=== PATIENT | male | born 1960 | race Hispanic/Latino ===

== ENCOUNTER 2024-07-13 04:05 | Observation (INO) | payer MEDICARE ==
[2024-07-13] VITALS (8 sets, daily range): BP systolic 120–159; BP diastolic 67–90; PULSE 73–89; RESP 16–22; TEMP 98.2–99.3; O2SAT 94–99
[~2024-07-13] VITALS: Ht 167.6 cm; Wt 97.5 kg
[2024-07-13] MEDS: FAMOTIDINE 20 MG/2 ML VIAL IV STA (04:21)
[2024-07-13] MEDS: ONDANSETRON HCL INJ 2MG/ML 2ML 2 MG/ML VIAL IV STA (04:40)
[2024-07-13] MEDS: Morphine 4mg INJECTION 4 MG/ML INJ IV ONE (04:41)
[2024-07-13 04:44] LABS: BASOPHILS % 0.3 % (0.0-1.0); EOSINOPHILS # (AUTO) 0.1 (0.0-0.4); EOSINOPHILS % 0.4 % (0.0-6.0); HEMATOCRIT 51.8 % (38.2-49.6); HEMOGLOBIN 17.5 g/dL (14.0-18.0); LYMPHOCYTES # (AUTO) 1.1 (1.0-3.2); LYMPHOCYTES % 8.4 % (18.0-39.1); MEAN CORPUSCULAR HEMOGLOBIN 32.2 pg (28-32); MEAN CORPUSCULAR HGB CONC 33.8 g/dL (31-35); MEAN CORPUSCULAR VOLUME 95.4 fL (81-99); MONOCYTES # (AUTO) 0.5 (0.2-0.8); MONOCYTES % 3.3 % (4.4-11.3); NEUTROPHILS # (AUTO) 11.8 (2.1-6.9); NEUTROPHILS % 87.2 % (38.7-80.0); PLATELET COUNT 206 x10e3/uL (140-360); RED BLOOD COUNT 5.43 x10e6/uL (4.3-5.7); RED CELL DISTRIBUTION WIDTH 12.4 % (11.7-14.4); WHITE BLOOD COUNT 13.52 x10e3/uL (4.8-10.8)
[2024-07-13 04:59] LABS: ALBUMIN/GLOBULIN RATIO 1.6 (0.8-2.0); ANION GAP 16.7 mmol/L (8-16); BILIRUBIN,TOTAL 0.6 mg/dL (0.2-1.2); CALCIUM 10.7 mg/dL (8.4-10.2); CREATININE, SERUM 0.96 mg/dL (0.72-1.25); POTASSIUM 3.7 mmol/L (3.5-5.1); TOTAL PROTEIN 8.1 g/dL (6.5-8.1)
[2024-07-13 05:05] LABS: TROPONIN I 0.015 ng/mL (0-0.300)
[2024-07-13] MEDS ORDERED: LIDOCAINE VISC 2% SOLN 15 ML UDC ONE (05:18)
[2024-07-13] MEDS ORDERED: BELLADONNA ALK/PHENOBARBITAL 5 ML UDC ONE (05:18)
[2024-07-13] MEDS ORDERED: MAGNESIUM/ALUMINUM/SIMETHICONE 30 ML UDC ONE (05:19)
[2024-07-13] MEDS: DONNATAL/LIDOCAINE/MAALOX 30 ML SUSP PO STA (05:30)
[2024-07-13] MEDS ORDERED: IOPAMIDOL 370 MG/ML 100 ML INFUS..BTL INJ ONE (05:38)
[2024-07-13] MEDS ORDERED: Morphine 4mg INJECTION 4 MG/ML INJ IV PRN (05:45)
[2024-07-13] MEDS: SODIUM CHLORIDE 0.9% 1000ML 1,000 ML IV SCH (05:47)
[2024-07-13 06:09] LABS: BILIRUBIN,URINE NEGATIVE (NEGATIVE); CLARITY,URINE CLEAR (CLEAR); COLOR,URINE YELLOW (YELLOW); GLUCOSE, URINE NEGATIVE (NEGATIVE); KETONES,URINE 2+ (NEGATIVE); LEUKOCYTE ESTERASE ,URINE NEGATIVE (NEGATIVE); NITRITE,URINE NEGATIVE (NEGATIVE); PH,URINE 6 (5 - 7); PROTEIN,URINE DIPSTICK TRACE (NEGATIVE); URINE UROBILINOGEN 0.2 mg/dL (0.2 - 1)
[2024-07-13] MEDS: HYDRALAZINE HCL 20 MG/ML VIAL IV PRN (06:31)
[2024-07-13 06:32] LABS: BACTERIA,URINE FEW /HPF; EPITHELIAL CELLS,URINE RARE /LPF; WBC,URINE (MAN) 0-5 /HPF (0-5)
[2024-07-13] MEDS: HYDROMORPHONE 1MG/1ML INJ IV STA (07:22)
[2024-07-13] MEDS ORDERED: PROPOFOL IV EMULSION 10 MG/ML 20 ML VIAL ONE ×2 (09:36→10:22)
[2024-07-13] MEDS ORDERED: FENTANYL CITRATE/PF 100MCG/2 ML INJ ONE ×2 (09:36→10:22)
[2024-07-13] MEDS ORDERED: ROCURONIUM BROMIDE 0 ML IV ONE (09:37)
[2024-07-13] MEDS ORDERED: SEVOFLURANE INHAL SOLN 250 ML PEN BTL ONE ×3 (09:37→11:14)
[2024-07-13] MEDS ORDERED: LIDOCAINE HCL 2% LOCAL INJ 5 ML SDV VIAL INJ ONE ×2 (09:37→10:22)
[2024-07-13] MEDS ORDERED: ROCURONIUM BROMIDE 1 ML IV ONE (10:22)
[2024-07-13] MEDS ORDERED: SUCCINYLCHOLINE CHLORIDE 20 MG/ML 10ML VIAL ONE (10:38)
[2024-07-13] MEDS ORDERED: DEXAMETHASONE SOD PHOS INJ 4 MG/ML SDV ONE (10:49)
[2024-07-13] MEDS ORDERED: ONDANSETRON HCL INJ 2MG/ML 2ML 2 MG/ML VIAL ONE (10:49)
[2024-07-13] MEDS ORDERED: ACETAMINOPHEN 1000 MG/100 ML 100 ML IV ONE (11:14)
[2024-07-13] MEDS ORDERED: DEXMEDETOMIDINE HCL 2 ML ONE (11:17)
[2024-07-13] MEDS ORDERED: SODIUM CHLORIDE 0.9% 100 ML ONE (11:18)
[2024-07-13] MEDS ORDERED: PHENYLEPHRINE HCL 1% 10 MG/ML VIAL ONE (11:20)
[2024-07-13] MEDS ORDERED: SUGAMMADEX SODIUM 200 MG/2 ML VIAL IV ONE (12:07)
[2024-07-13] MEDS ORDERED: ACETAMINOPHEN 1000 MG/100 ML IV PRN (12:30)
[2024-07-13] MEDS: MIDAZOLAM HCL 2 MG/2 ML VIAL ONE (14:06)
[2024-07-13 15:07] LABS: TROPONIN I 0.02 ng/mL (0-0.300)
[2024-07-14] VITALS: BP 135/73; PULSE 98; RESP 20; TEMP 99.6; O2SAT 95
[2024-07-14] MEDS: ONDANSETRON HCL INJ 2MG/ML 2ML 2 MG/ML VIAL IV PRN (04:09)
[2024-07-14] MEDS: HYDROMORPHONE 1MG/1ML INJ IV PRN (04:09)
[2024-07-14 05:41] LABS: BASOPHILS % 0.1 % (0.0-1.0); HEMATOCRIT 45.6 % (38.2-49.6); HEMOGLOBIN 16.1 g/dL (14.0-18.0); LYMPHOCYTES # (AUTO) 0.9 (1.0-3.2); LYMPHOCYTES % 8.7 % (18.0-39.1); MEAN CORPUSCULAR HEMOGLOBIN 32.1 pg (28-32); MEAN CORPUSCULAR HGB CONC 35.3 g/dL (31-35); MONOCYTES # (AUTO) 1.1 (0.2-0.8); MONOCYTES % 10.7 % (4.4-11.3); NEUTROPHILS # (AUTO) 8.5 (2.1-6.9); NEUTROPHILS % 80.1 % (38.7-80.0); PLATELET COUNT 192 x10e3/uL (140-360); RED BLOOD COUNT 5.01 x10e6/uL (4.3-5.7); RED CELL DISTRIBUTION WIDTH 13.3 % (11.7-14.4)
[2024-07-14 06:16] LABS: ALBUMIN 3.6 g/dL (3.5-5.0); ALBUMIN/GLOBULIN RATIO 1.2 (0.8-2.0); ANION GAP 15.7 mmol/L (8-16); CALCIUM 9.6 mg/dL (8.4-10.2); CREATININE, SERUM 0.99 mg/dL (0.72-1.25); POTASSIUM 3.7 mmol/L (3.5-5.1); TOTAL PROTEIN 6.5 g/dL (6.5-8.1)
[2024-07-14 06:24] LABS: TROPONIN I 0.01 ng/mL (0-0.300)
[2024-07-14 07:35] VITALS: PULSE 79; RESP 16; O2SAT 96
[2024-07-14 08:03] VITALS: BP 155/65; PULSE 78; RESP 18; TEMP 99.4; O2SAT 96
[2024-07-14] MEDS: HYDROCODONE/APAP 7.5MG-325MG 1 EA TAB PO PRN (09:30)
[2024-07-14 09:34] VITALS: BP 155/65; PULSE 78; RESP 18; TEMP 99.4; O2SAT 96
[2024-07-14 11:29] VITALS: BP 141/69; PULSE 82; RESP 18; TEMP 98.4; O2SAT 96
[2024-07-14 15:00] VITALS: PULSE 82; RESP 16; O2SAT 97
== END 2024-07-14 16:00 | disposition home or self-care (01) ==
LOC: ER 04:12 → ERHOLD 05:41 → INTOOBSV 05:41 → MED/SURG2 09:09
PROVIDERS: ADMIT Internal Medicine; ATTEND Internal Medicine
DX: K80.12 Calculus of gallbladder with acute and chronic cholecystitis without obstruction (principal); I10 Essential (primary) hypertension; I49.3 Ventricular premature depolarization; R00.8 Other abnormalities of heart beat; E03.9 Hypothyroidism, unspecified; Z87.891 Personal history of nicotine dependence; E66.9 Obesity, unspecified; Z68.34 Body mass index [BMI] 34.0-34.9, adult
CPT/HCPCS: 36415 ×2; 47562; 74177; 80053 ×2; 81001; 82550 ×2; 83690; 84484 ×2; 85025 ×2; 88304; 93005; 93306; 94799 ×2; 99284; C1766; G0378 ×2; J0131; J0330; J0360; J1100; J1171 ×2; J2003; J2250; J2270; J2371; J2405 ×2; J2470 ×2; J2543 ×2; J2704; J3010; J7030 ×2; J7050; Q9967